=== PATIENT | male | born 1950 | race African-American/Black ===

== ENCOUNTER 2023-03-07 21:11 | Emergency (ER) | payer OTHER ==
[~2023-03-07] VITALS: Ht 182.9 cm; Wt 92.0 kg
[~2023-03-07 21:11] MED LIST: GLUCOPHAGE500 MG OR; IBUPROFEN800 MG OR; ZESTRIL40 MG OR
[2023-03-07] MEDS ORDERED: OZEMPIC2 MG SC (21:43)
[2023-03-07] MEDS ORDERED: INSULIN (21:44)
[2023-03-07] MEDS ORDERED: GABAPENTIN100 MG PO (21:44)
[2023-03-07] MEDS ORDERED: CHOLESTERO PO (21:45)
[2023-03-07] MEDS ORDERED: HYDROCHLOROT25 MG PO (21:45)
[2023-03-07 22:17] VITALS: BP 121/68
[2023-03-07 22:30] VITALS: BP 115/65
[2023-03-07 22:45] VITALS: BP 111/67
[2023-03-07 22:52] LABS: BASO% 0.7 % (0-3); EOS% 3.3 % (0-8); HEMATOCRIT 41.2 % (39.0-50.0); HEMOGLOBIN 13.4 g/dl (14.0-18.0); IMMATURE GRANULOCYTES 0.1 % (0.0-5.0); LYMPH% 27.5 % (15-41); MEAN CORPUSCULAR HGB 30.2 pG CALC (26.0-32.0); MEAN CORPUSCULAR HGB CONC 32.5 g/dL CAL (32.0-36.0); MONO% 10.7 % (2-13); NEUT# 5.05 thou/uL (1.82-7.42); NEUT% 57.7 % (42-76); RED BLOOD COUNT 4.43 mill/uL (4.70-6.10); RED CELL DISTRI WIDTH 11.8 % (11.5-15.5)
[2023-03-07 23:15] VITALS: BP 103/59
[2023-03-07 23:31] VITALS: BP 97/60
[2023-03-07 23:49] LABS: ALBUMIN 4.5 g/dL (3.2-5.0); BILIRUBIN, TOTAL 0.4 mg/dL (0.2-1.3); CREATININE 2.4 mg/dL (0.7-1.3); TOTAL PROTEIN 7.9 g/dL (6.3-8.2)
[2023-03-08] VITALS: BP 108/63
[2023-03-08 00:16] VITALS: BP 102/60
[2023-03-08] MEDS ORDERED: CARDIZEM CD120 MG PO (00:25)
[2023-03-08 00:46] VITALS: BP 108/67
[2023-03-08 00:57] VITALS: BP 108/67
== END 2023-03-08 00:57 | disposition home or self-care (01) | DRG 684 ==
LOC: ED 21:11
PROVIDERS: Family Medicine
DX: I12.9 Hypertensive chronic kidney disease with stage 1 through stage 4 chronic kidney disease, or unspecified chronic kidney disease (principal); E11.22 Type 2 diabetes mellitus with diabetic chronic kidney disease; N18.9 Chronic kidney disease, unspecified; E87.5 Hyperkalemia; E11.40 Type 2 diabetes mellitus with diabetic neuropathy, unspecified; E78.00 Pure hypercholesterolemia, unspecified; Z79.85 Long-term (current) use of injectable non-insulin antidiabetic drugs

== ENCOUNTER 2024-01-27 02:46 | Emergency (ER) | payer OTHER ==
[~2024-01-27] VITALS: Ht 182.9 cm; Wt 85.0 kg
[~2024-01-27 02:46] MED LIST changes: +CARDIZEM CD120 MG PO; +CHOLESTERO PO; +GABAPENTIN100 MG PO; +HYDROCHLOROT25 MG PO; +INSULIN; +OZEMPIC2 MG SC
[2024-01-27 04:04] VITALS: BP 168/84
[2024-01-27 04:09] LABS: BASO% 0.4 % (0-3); EOS% 4.5 % (0-8); HEMATOCRIT 39.8 % (39.0-50.0); HEMOGLOBIN 13.3 g/dl (14.0-18.0); IMMATURE GRANULOCYTES 0.1 % (0.0-5.0); LYMPH% 22.9 % (15-41); MEAN CELL VOLUME 91.5 fL CALC (80.0-100.0); MEAN CORPUSCULAR HGB 30.6 pG CALC (26.0-32.0); MEAN CORPUSCULAR HGB CONC 33.4 g/dL CAL (32.0-36.0); MONO% 10.6 % (2-13); NEUT# 5.66 thou/uL (1.82-7.42); NEUT% 61.5 % (42-76); RED BLOOD COUNT 4.35 mill/uL (4.70-6.10)
[2024-01-27 04:15] LABS: ALBUMIN 4.5 g/dL (3.2-5.0); POTASSIUM 4.8 mmol/l (3.5-5.1); TOTAL PROTEIN 7.9 g/dL (6.3-8.2)
[2024-01-27 04:16] LABS: BILIRUBIN, TOTAL 0.6 mg/dL (0.2-1.3); CREATININE 1.2 mg/dL (0.7-1.3)
[2024-01-27 04:17] VITALS: BP 176/88
[2024-01-27 04:30] VITALS: BP 155/82
[2024-01-27 04:40] LABS: URINE BILIRUBIN - DIPSTICK Negative (NEGATIVE); URINE BLOOD DIPSTICK Negative (NEGATIVE); URINE GLUCOSE - DIPSTICK 100 mg/dL (NEGATIVE); URINE KETONE Negative (NEGATIVE); URINE LEUK ESTERASE Negative (NEGATIVE); URINE NITRITE - DIPSTICK Negative (Negative); URINE PH 5.5 (4.5-8.0); URINE PROTEIN - DIPSTICK Negative (NEG-TRACE); URINE SPECIFIC GRAVITY >=1.030
[2024-01-27 04:43] LABS: URINE COLOR Yellow
[2024-01-27 04:45] VITALS: BP 155/86
[2024-01-27 05:00] VITALS: BP 144/84
== END 2024-01-27 05:11 | disposition home or self-care (01) | DRG 866 ==
LOC: ED 02:46
PROVIDERS: Emergency Medicine
DX: B34.9 Viral infection, unspecified (principal); I10 Essential (primary) hypertension; E11.40 Type 2 diabetes mellitus with diabetic neuropathy, unspecified; E78.00 Pure hypercholesterolemia, unspecified; Z79.4 Long term (current) use of insulin; Z79.85 Long-term (current) use of injectable non-insulin antidiabetic drugs; Z20.822 Contact with and (suspected) exposure to COVID-19

== ENCOUNTER 2024-07-01 20:03 | Emergency (ER) | payer OTHER ==
[~2024-07-01] VITALS: Ht 182.9 cm; Wt 93.0 kg
[2024-07-01] MEDS ORDERED: LORazepam 2 MG/ML ONE (20:10)
[2024-07-01] MEDS ORDERED: LORazepam 2 MG/ML IV ONE (20:10)
[2024-07-01 20:28] LABS: BASO% 0.8 % (0-3); EOS% 5.3 % (0-8); HEMATOCRIT 39.2 % (39.0-50.0); HEMOGLOBIN 12.8 g/dl (14.0-18.0); IMMATURE GRANULOCYTES 0.2 % (0.0-5.0); MEAN CORPUSCULAR HGB CONC 32.7 g/dL CAL (32.0-36.0); MONO% 11.1 % (2-13); NEUT# 3.77 thou/uL (1.82-7.42); NEUT% 45.6 % (42-76); RED BLOOD COUNT 4.26 mill/uL (4.70-6.10); RED CELL DISTRI WIDTH 12.4 % (11.5-15.5)
[2024-07-01 20:36] LABS: MAGNESIUM 2.1 mg/dL (1.6-2.3)
[2024-07-01 20:37] LABS: ETHYL ALCOHOL < 10 mg/dl (0-30)
[2024-07-01 20:38] LABS: ALBUMIN 4.3 g/dL (3.2-5.0); ALKALINE PHOSPHATASE 100 u/l (38-126); ANION GAP 12 (6-22 (CALC)); BILIRUBIN, TOTAL 0.5 mg/dL (0.2-1.3); BUN 14 mg/dL (8-23); BUN/CREATININE RATIO 13 (12-20 (CALC)); CALCULATED LDLCHOLESTEROL 71 mg/dL (62-129 (CALC)); CARBON DIOXIDE 24 mmol/l (22-30); CHLORIDE 106 mmol/l (95-108); CHOLESTEROL HDL RATIO 3.1 (<4.4 (CALC)); CREATININE 1.1 mg/dL (0.7-1.3); ESTIMATED GFR 70 ML/MIN (>=90 (CALC)); HDL CHOLESTEROL 46 mg/dL (39.0-59.0); POTASSIUM 4.8 mmol/l (3.5-5.1); SGOT/AST 39 u/l (19-48); SODIUM 138 mmol/l (137-146); TOTAL CHOLESTEROL 143 mg/dl (0-199); TOTAL PROTEIN 7.4 g/dL (6.3-8.2); TOTAL TRIGLYCERIDES 127 mg/dl (0-149); VLDL CHOLESTROL 25 mg/dl (0-38 (CALC))
[2024-07-01 20:46] VITALS: BP 163/97
[2024-07-01 20:51] LABS: PROTHROMBIN TIME 10.9 SECONDS (9.0-12.5)
[2024-07-01 21:01] VITALS: BP 167/82
[2024-07-01 21:15] VITALS: BP 150/80
[2024-07-01 21:32] VITALS: BP 161/84
[2024-07-01 22:17] LABS: URINE BILIRUBIN - DIPSTICK Negative (NEGATIVE); URINE BLOOD DIPSTICK Negative (NEGATIVE); URINE GLUCOSE - DIPSTICK 100 mg/dL (NEGATIVE); URINE KETONE Negative (NEGATIVE); URINE LEUK ESTERASE Negative (NEGATIVE); URINE NITRITE - DIPSTICK Negative (Negative); URINE PROTEIN - DIPSTICK Negative (NEG-TRACE); URINE SPECIFIC GRAVITY 1.025; URINE UROBILINOGEN - DIPSTICK 0.2 E.U./dL (0.2)
[2024-07-01 22:18] LABS: URINE COLOR Yellow
[2024-07-01 23:00] VITALS: BP 158/86
[2024-07-02 00:01] VITALS: BP 151/70
[2024-07-02 00:15] VITALS: BP 151/70
== END 2024-07-02 00:15 | disposition home or self-care (01) | DRG 948 ==
LOC: ED 20:03
PROVIDERS: Family Medicine; Nurse Practitioner
DX: R41.82 Altered mental status, unspecified (principal); V48.0XXA Car driver injured in noncollision transport accident in nontraffic accident, initial encounter
CPT/HCPCS: J2060